=== PATIENT | male | born 1990 | race Caucasian/White ===

== ENCOUNTER 2018-07-17 16:54 | Emergency (ER) | payer MEDICAID, OTHER ==
[~2018-07-17] VITALS: Ht 167.6 cm; Wt 139.3 kg
[~2018-07-17 16:54] MED LIST: CIPR500T87 PO; HYDR-3240 PO; METR500T PO; ONDA4TAB10 PO
[2018-07-17] MEDS ORDERED: INDOMETHACIN 50 MG CAPSULE ONE (17:46)
[2018-07-17] MEDS ORDERED: INDOMETHACIN 50 MG CAPSULE PO ONE (18:00)
[2018-07-17] MEDS ORDERED: COLCHICINE 0.6 MG TABLET ONE ×2 (18:27→18:31)
[2018-07-17] MEDS ORDERED: COLCHICINE 0.6 MG TABLET PO ONE (18:30)
[2018-07-17 19:49] VITALS: BP 145/89
== END 2018-07-17 19:51 | disposition home or self-care (01) ==
LOC: ED 19:50
DX: M25.571 Pain in right ankle and joints of right foot (principal); I10 Essential (primary) hypertension
CPT/HCPCS: 36415; 84550; 99284